=== PATIENT | female | born 1960 | race Two or more races ===

== ENCOUNTER 2018-07-10 05:44 | Observation (INO) ==
[2018-07-10] MEDS ORDERED: Fluorescein Sod 10% Inj 500 MG/5 ML Ampul IV.PUSH ONE (06:47)
[2018-07-10] MEDS ORDERED: Estrogens Congugated Vag Cream w/app 30 GM Tube VAGINAL ONE (06:47)
[2018-07-10] MEDS ORDERED: ceFAZolin 2 GM Premix Inj 2 GM/100 ML BAG IV.SIG ONE ×2 (06:55→08:00)
[2018-07-10] MEDS ORDERED: Metoprolol Tartrate 25 MG Tablet PO ONE (07:30)
[2018-07-10] MEDS ORDERED: Chlorhexidine Gluconate 2% 1 Pack (2 Cloths) TOPICAL ONE (07:30)
[2018-07-10] MEDS ORDERED: Sodium Chlor 0.9% Inj 500 ML IV.CONT ONE (07:30)
[2018-07-10] MEDS ORDERED: Succinylcholine Inj 100 MG/5 ML Syringe IV.PUSH ONE (08:20)
[2018-07-10] MEDS ORDERED: Lidocaine PF 1% Inj 5 ML Syringe OTHER ONE (08:20)
--- NOTE | 2018-07-10 08:34 | P.OP ---
- Preoperative Diagnosis (1) Postmenopausal bleeding (2) Complete uterovaginal prolapse (3) Hypertrophy of uterus (4) Body mass index (BMI) of 35.0-35.9 in adult - Postoperative Diagnosis (1) Postmenopausal bleeding (2) Complete uterovaginal prolapse (3) Hypertrophy of uterus (4) Body mass index (BMI) of 35.0-35.9 in adult Date of procedure: 07/10/18 Procedure: 1. Laparoscopic assisted vaginal hysterectomy 2. Bilateral salpingo-oophorectomy [facility] Surgeon: Taisha Sanchez MD Hydraulic Oil Tool Operator: OR Staff Estimated blood loss (mL): 150 IV fluids (mL): 1,000 (+ IV fluids + Methylene blue) Urine output (mL): 500 Pathology: other (cervix, Uterus, tubes, ovaries) Operation and Findings: Descriptions of the procedure: I discussed the risks, benefits and alternatives of the procedure with the patient. Informed consent was obtained after questions were answered. She was then taken to the operating room with her IV running. She was placed in the supine position and was given general anesthesia without difficulties or complications. She was then placed in the dorsal lithotomy position and was prepped and draped in the usual sterile fashion. Attention was first turned to the patient's genital area. A bivalved speculum was introduced inside the patient's vagina. The anterior aspect of the cervix was grasped with a single tooth tenaculum for manipulation. The cervix was carefully dilated and a uterine manipulator was carefully introduced inside her uterus. The rest of the instruments were removed from the patient's vagina and a sterile blue towel was used to cover the perineum. The surgeon changed gloves and attention was then turned to the patient's abdomen. A vertical umbilical incision was made with the scalpel. A 5 mm trocar was introduced inside the patient's abdomen under direct visualization. A pneumo -peritoneum was created with CO2 gas. Next, three 5 mm trocars were introduced inside the patient's abdomen under direct visualization in the lower right, mid , and left abdomen. A survey of the patient's abdomen revealed normal anatomy. A survey of the patient's pelvis revealed normal tubes, normal ovaries and enlarged, very vascular uterus. The round ligaments and infundibulopelvic ligaments were carefully and serially grasped, electrocauterized and cut with the Harmonic scalpel. Excellent hemostasis was noted. The tissues along the uterus on both sides were serially grasped, electrocauterized and transected with the Harmonic scalpel. (Methylene blue was given IV at this time). The ureters were noted to be away from the surgical sites. The uterine vessels were skeletonized, electrocauterized and transected with the Harmonic scalpel. Good hemostasis was noted. Next, the bladder flap was created and the bladder was dissected off the lower uterine segment. Excellent hemostasis was noted. At this point, attention was turned again to the patient's perineal area. The uterine manipulator was removed. The Bovie was used to circumferentially cut the vaginal tissues at the cervico-vaginal junction after Pitressin had been injected. The anterior cul de sac was entered without difficulties. The posterior cul de sac was also entered without difficulties as well. A retractor was introduced inside the posterior cul de sac. A retractor was placed inside the anterior cul de sac. Curved Barbara clamps were used to clamp the cardinal ligaments. These were transected with Hunter scissors and stitched with 0-Vicryl. Good hemostasis was noted. The rest of the tissues along the lower uterine segment were serially clamped, transected with Hunter scissors and stitched with 0 -Vicryl. Good hemostasis was noted at each pedicle. The cervix, uterus, tubes and ovaries were removed and sent to pathology. A sponge stick was used to check each pedicle for hemostasis. All the instruments were removed from the patient's pelvis. Next, the peritoneum was reapproximated with a purse string stitch of 0-Vicryl. The pedicles were reapproximated and secured in order to get the vaginal cuff higher in the pelvis. The vaginal tissues were reapproximated with running, locked stitches of 0-Vicryl in a vertical fashion. The surgeon changed gloves and attention was turned again to the patient's abdomen. The pneumoperitoneum was recreated. The surgical sites were noted to be hemostatic. Copious irrigation was done. The ureters were identified and found to be away from the surgical sites. There was no evidence of injury or blockage of the ureters or bladder. Jhonatan powder was placed over the surgical sites. All of the instruments were removed from the patient's abdomen. The ports were also removed under direct visualization. Excellent hemostasis was noted. The CO2 gas was carefully expressed out of the patient's abdomen. The skin incisions were injected with 0.5 % Marcaine with Epinephrine and were reapproximated with subcutaneous stitches of 4-0 Vicryl. Mastisol and steri strips were placed over the incisions. The patient tolerated the procedure well. She was successfully extubated and transferred to PACU in stable condition. Note: I called the patient's at his cell phone several times but there was no answer. I left a voicemail message letting him know that the surgery went well.
[2018-07-10] MEDS ORDERED: Methylene Blue Inj 10 MG/ML Vial IV.PUSH ONE (09:20)
[2018-07-10] MEDS ORDERED: hydrALAZINE HCl Inj 20 MG/ML Vial IV.PUSH ONE (09:50)
[2018-07-10] MEDS: Bupivacaine/Epinephrine PF Inj 0.25% 10 ML Vial ONE ×2 (10:37→10:40)
[2018-07-10] MEDS ORDERED: Neostigmine Inj 5 MG/5 ML Syringe IV.PUSH ONE (10:45)
[2018-07-10] MEDS ORDERED: Glycopyrrolate Inj 1 MG/5 ML Syringe IV.PUSH ONE (10:45)
[2018-07-10] MEDS ORDERED: Zolpidem Tartrate 5 MG Tablet PO PRN (10:49)
[2018-07-10] MEDS ORDERED: LORazepam 0.5 MG Tablet PO PRN (10:49)
[2018-07-10] MEDS ORDERED: fentaNYL Citrate Inj 100 MCG/2 ML Ampul ONE (11:08)
[2018-07-10] MEDS ORDERED: *morphine SULFATE 10 MG/ML PERIprocedure ONLY ONE (11:12)
[2018-07-10] MEDS ORDERED: HYDROmorphone PF Inj 2 MG/ML Vial ONE (11:33)
[2018-07-10] MEDS: Ibuprofen 600 MG Tablet PO PRN ×2 (16:34→22:36)
[2018-07-10] MEDS: Docusate Sodium 100 MG Capsule PO SCH (21:31)
[2018-07-11] MEDS: Ibuprofen 600 MG Tablet PO PRN ×2 (04:45→11:21)
[2018-07-11 05:53] LABS: Baso % (Auto) 0.3 % (0.0-2.0); Eos % (Auto) 0.4 % (0.0-4.0); Hematocrit 36.8 % (35.0-46.0); Hemoglobin 12.4 gm/dL (11.6-15.3); Lymph # (Auto) 1.9 th/mm3 (1.0-4.8); Lymph % (Auto) 20.1 % (9.0-44.0); Mean Corpuscular HGB Conc 33.7 % (32.0-36.0); Mean Corpuscular Hemoglobin 30.2 pg (27.0-34.0); Mean Corpuscular Volume 89.7 fL (80.0-100.0); Mean Platelet Volume 8.5 fL (7.0-11.0); Mono # (Auto) 0.8 th/mm3 (0.0-0.9); Mono % (Auto) 7.9 % (0.0-8.0); Neut # (Auto) 6.7 th/mm3 (1.8-7.7); Neut % (Auto) 71.3 % (16.0-70.0); Platelet Count 238 th/mm3 (150-450); White Blood Count 9.5 th/mm3 (4.0-11.0)
[2018-07-11] MEDS ORDERED: Levothyroxine 50 MCG Tablet PO SCH (06:00)
[2018-07-11 06:31] LABS: Calcium 8.4 mg/dL (8.5-10.1); Carbon Dioxide 30.2 meq/L (21.0-32.0); Potassium 3.8 meq/L (3.5-5.1)
--- NOTE | 2018-07-11 07:40 | P.PNOB ---
Assessment and Plan - Postoperative Procedures Operation Date: 07/10/18 07:30 Actual Procedures Side Surgeon p LAPAROSCOPIC ASSISTED VAGINAL HYSTERECTOMY, BILATERAL SALPINGOOPHERECTOMY Bilateral Taisha Sanchez MD Postoperative day: 1 Postoperative status: doing well Postoperative plan: routine post-op care - Time Spent With Patient Total time spent is greater than 50% in coordination of care (as documented) at patient's floor/unit and/or counseling patient: Subjective Interval history: per RN, patient had a good night, her pain is well controlled with IV pain medication Subjective: patient reports feeling better, patient has no complaints, patient desires discharge, pain is well controlled, patient is tolerating oral intake Physical Exam Vital signs: Temp Pulse Resp BP Pulse Ox 98.2 F 70 16 96/51 L 100 07/11/18 04:41 07/11/18 04:41 07/11/18 04:41 07/11/18 04:41 07/10/18 12:00 - Constitutional no acute distress, obese, cooperative - Routine Abdominal Exam Present: soft, normoactive bowel sounds, wound (C/D/I) - Urinary Catheter Management Indwelling Urethral Catheter Cath placed during this visit: yes, but has since been removed by the nurse Urethral indwelling: No Insertion date: 07/10/18 Insertion time: 08:57 Removal date: 07/11/18 Results - Labs CBC & Chem 7: 07/11/18 05:20 07/11/18 05:20 Labs: Laboratory Results - last 24 hr 07/10/18 07/10/18 07/11/18 11:15 20:36 05:20 WBC 9.5 RBC 4.10 Hgb 12.4 Hct 36.8 MCV 89.7 MCH 30.2 MCHC 33.7 RDW 14.0 Plt Count 238 MPV 8.5 Neut % (Auto) 71.3 H Lymph % (Auto) 20.1 Heard % (Auto) 7.9 Eos % (Auto) 0.4 Baso % (Auto) 0.3 Neut # (Auto) 6.7 Lymph # (Auto) 1.9 Heard # (Auto) 0.8 Eos # (Auto) 0.0 Baso # (Auto) 0.0 WBC Differential . Differential Comment Auto diff final Sodium Potassium Chloride Carbon Dioxide Anion Gap BUN Creatinine Estimated GFR POC Glucose 185 H 201 H Random Glucose Calcium 07/11/18 05:20 WBC RBC Hgb Hct MCV MCH MCHC RDW Plt Count MPV Neut % (Auto) Lymph % (Auto) Heard % (Auto) Eos % (Auto) Baso % (Auto) Neut # (Auto) Lymph # (Auto) Heard # (Auto) Eos # (Auto) Baso # (Auto) WBC Differential Differential Comment Sodium 140 Potassium 3.8 Chloride 102 Carbon Dioxide 30.2 Anion Gap 8 BUN 15 Creatinine 0.73 Estimated GFR 81 L POC Glucose Random Glucose 113 H Calcium 8.4 L
[2018-07-11 07:48] VITALS: BP 102/59; PULSE 72; RESP 18; TEMP 98.1; O2SAT 96
[2018-07-11] MEDS: Docusate Sodium 100 MG Capsule PO SCH (08:39)
[2018-07-11] MEDS ORDERED: Lisinopril 20 MG Tablet PO SCH (09:00)
[2018-07-11] MEDS ORDERED: EXEMESTANE 25 MG PO SCH (09:00)
[2018-07-11] MEDS ORDERED: Sertraline 100 MG Tablet PO SCH (09:00)
== END 2018-07-11 12:00 | disposition home or self-care (01) ==
LOC: HSDI 05:44 → HSDC 05:44 → H1EA 13:52
PROVIDERS: ADMIT Obstetrics & Gynecology; ATTEND Obstetrics & Gynecology